=== PATIENT | male | born 1980 | race Caucasian/White ===

== ENCOUNTER 2018-01-10 21:26 | Outpatient (CLI) | payer MEDICAID | END 2018-01-10 21:27 | disposition critical access hospital (66) | LOC: EMS 21:26 | PROVIDERS: ATTEND Surgery | DX: M79.675 Pain in left toe(s) (principal) | CPT/HCPCS: A0425; A0429 ==

== ENCOUNTER 2018-01-10 21:44 | Emergency (ER) | payer MEDICAID ==
[2018-01-10 21:48] VITALS: BP 158/113
[2018-01-10] MEDS ORDERED: LIDOCAINE PATCH 5% TOP STA (21:49)
[2018-01-10] MEDS ORDERED: ACETAMINOPHEN 325 MG TABLET PO STA (21:49)
--- NOTE | 2018-01-10 22:01 | ED Physician Documentation ---
PD HPI LOWER EXT INJURY - Stated complaint Stated Complaint: SORE FOOT - Chief complaint Chief Complaint: Trauma Ext - History obtained from History obtained from: Patient, EMS - History of Present Illness PD HPI LOW EXT INJURY LOCATION: Left, Foot Timing - onset: Other ("forever") Similar symptoms before: No diagnosis Recently seen: Not recently seen - Additional information Additional information: Patient is a 37 year old male who is presenting to the emergency department for left toe pain. Patient reports that the pain has been going on forever and it is from "barometric pressure". Patient appears to be under the influence of methamphetamine or other sympathomimetic. Review of Systems Unable to obtain: AMS PD PAST MEDICAL HISTORY - Past Medical History Past Medical History: No - Past Surgical History Past Surgical History: Yes General: Appendectomy - Present Medications Home Medications: Ambulatory Orders Medication Instructions Recorded Confirmed Ibuprofen [Motrin] 400 mg PO Q6H PRN #20 tablet 09/11/15 Mupirocin Calcium [Bactroban] 1 applic TP BID #1 tub 09/11/15 Lidocaine Patch 5% [Lidoderm Patch] 1 each TOP DAILY #7 patch 01/10/18 - Allergies Allergies/Adverse Reactions: Allergies Allergy/AdvReac Type Severity Reaction Status Date / Time Penicillins Allergy Unknown Verified 01/10/18 21:48 - Social History Does the pt smoke?: Yes Smoking Status: Current every day smoker Does the pt drink ETOH?: No Does the pt have substance abuse?: Yes - Immunizations Immunizations are current?: No PD ED PE NORMAL - Vitals Vital signs reviewed: Yes - HEENT HEENT: Atraumatic - Neck Neck: Supple, no meningeal sign - Respiratory Respiratory: No respiratory distress - Abdomen Abdomen: Non distended - Derm Derm: No rash - Neuro Neuro: No motor deficit, Normal speech Eye Opening: Spontaneous PD ED PE EXPANDED - Cardiac Cardiac: Tachy - Extremities Extremities: Left foot (milder erythema of left foot), Left toe(s) (callus between toes on left foot, no sign of fungal infection or cellulits ) - Psych Psych: Agitated Results - Vitals Vitals: Vital Signs - 24 hr 01/10/18 21:45 Temperature 36.9 C Heart Rate 102 H Respiratory 20 Rate Blood Pressure 158/113 H O2 Saturation 99 Oxygen O2 Source Room air PD MEDICAL DECISION MAKING - ED course Complexity details: reviewed old records, reviewed results, re-evaluated patient , considered differential, d/w patient ED course: patient was seen and examined at bedside. Patient was under the influence of a sympathomimetic, likely methamphetamine. There was no acute trauma or other injury or treatable cause appreciated for patient's foot pain. Patient was treated with lidoderm pathch and tylenol. Patient required no further work up and was stable for discharge with outpatient follow up. Departure - Departure Disposition: 01 Home, Self Care Clinical Impression: Toe pain, left Condition: Good Instructions: Chronic Pain Follow-Up: Melly Adame ARNP [Primary Care Provider] - Prescriptions: Lidocaine Patch 5% [Lidoderm Patch] 1 each TOP DAILY #7 patch Comments: You should alternate between motrin and tylenol as needed for pain. You can also apply the lidoderm patch as needed. You should follow up with your doctor if your pain persists. Discharge Date/Time: 01/10/18 22:33
== END 2018-01-10 22:33 | disposition home or self-care (01) ==
LOC: EDUNIT# → ED 21:44
DX: M79.675 Pain in left toe(s) (principal); F17.200 Nicotine dependence, unspecified, uncomplicated
CPT/HCPCS: 99283; A9270

== ENCOUNTER 2019-01-15 07:20 | Outpatient (CLI) | payer SELFPAY | END 2019-01-15 07:21 | disposition EMS.NT | LOC: EMS 07:20 | PROVIDERS: ATTEND Surgery | DX: T14.90XA Injury, unspecified, initial encounter (principal); Y08.89XA Assault by other specified means, initial encounter; Z59.0 Homelessness ==

== ENCOUNTER 2019-10-13 15:01 | Emergency (ER) | payer SELFPAY ==
[2019-10-13 15:21] VITALS: BP 120/99
--- NOTE | 2019-10-13 15:42 | ED Physician Documentation ---
History of Present Illness - Stated complaint Stated Complaint: RT HAND WOUND/SWELLING - Chief complaint Chief Complaint: Wound - History obtained from History obtained from: Patient - History of Present Illness Timing: How many days ago (3-4) Pain level max: 4 Pain level now: 3 - Additonal information Additional information: 39 year old male, right handed states swelling and redness to the dorsum of the hand. denies any injury. denies IV drug use. no fevers. worse with movement and better with rest. Review of Systems Constitutional: denies: Fever, Chills Respiratory: denies: Cough GI: denies: Vomiting Skin: denies: Rash PD PAST MEDICAL HISTORY - Past Medical History Past Medical History: No - Past Surgical History Past Surgical History: Yes General: Appendectomy - Present Medications Home Medications: Ambulatory Orders Medication Instructions Recorded Confirmed Clindamycin HCl [Clindamycin 300MG 300 mg PO Q6H #40 capsule 10/13/19 CAP] - Allergies Allergies/Adverse Reactions: Allergies Allergy/AdvReac Type Severity Reaction Status Date / Time Penicillins Allergy Unknown Verified 10/13/19 15:21 - Living Situation Living Situation: reports: With family Living Arrangement: reports: At home - Social History Does the pt smoke?: Yes Smoking Status: Current every day smoker Does the pt drink ETOH?: No Does the pt have substance abuse?: Yes - Immunizations Immunizations are current?: No PD ED PE NORMAL - Vitals Vital signs reviewed: Yes - General General: Alert and oriented X 3, No acute distress, Well developed/nourished - HEENT HEENT: Moist mucous membranes - Neck Neck: Supple, no meningeal sign - Derm Derm: Warm and dry - Extremities Extremities: Other (dorsum R hand - small asbcess with diffuse swelling. no palmar tenderness. NVI. no tendon injury. ) - Neuro Neuro: Alert and oriented X 3 - Psych Psych: Normal mood, Normal affect Results - Vitals Vitals: Vital Signs - 24 hr 10/13/19 15:15 Temperature 36.9 C Heart Rate 99 Respiratory 20 Rate Blood Pressure 120/99 H O2 Saturation 98 Oxygen O2 Source Room air Procedures - Abscess I&D (location) R hand dorsum Preparation: Confirmed with ultrasound, Lidocaine 2 % Incision: Incised with scalpel, Purulent drainage, Irrigated Other: Pt tolerated well, Dressing applied, Antibiotic prescribed PD MEDICAL DECISION MAKING - ED course Complexity details: considered differential, d/w patient ED course: Patient with a small abscess to the dorsum of the right hand with surrounding. No lymphangitis. No deep space infection in the hand. No tenderness along the tendons. Incision and drainage performed. Will place on antibiotics for home. Patient counseled regarding signs and symptoms for which I believe and urgent re-evaluation would be necessary. Patient with good understanding of and agreement to plan and is comfortable going home at this time This document was made in part using voice recognition software. While efforts are made to proofread this document, sound alike and grammatical errors may occur. Tetanus is up-to-date Departure - Departure Disposition: 01 Home, Self Care Clinical Impression: Abscess Cellulitis Qualifiers: Site of cellulitis: extremity Site of cellulitis of extremity: upper extremity Laterality: right Qualified Code(s): L03.113 - Cellulitis of right upper limb Condition: Good Instructions: ED Abscess IandD, ED Infec Skin Cellulitis Follow-Up: your,doctor in 2 days for wound check [Other] Prescriptions: Clindamycin HCl [Clindamycin 300MG CAP] 300 mg PO Q6H #40 capsule Comments: Take all antibiotics until gone. Follow-up with your doctor in 2 days for a wound check or return here. Return sooner if you notice increasing redness, swelling or you develop fevers.
[2019-10-13] MEDS: CLINDAMYCIN 150 MG CAPSULE PO STA (15:50)
== END 2019-10-13 15:50 | disposition home or self-care (01) ==
LOC: ED 15:01
DX: L02.511 Cutaneous abscess of right hand (principal); L03.113 Cellulitis of right upper limb; F17.200 Nicotine dependence, unspecified, uncomplicated
CPT/HCPCS: 10060

== ENCOUNTER 2019-11-09 13:59 | Emergency (ER) | payer SELFPAY ==
[2019-11-09 14:09] VITALS: BP 105/83
--- NOTE | 2019-11-09 14:21 | ED Physician Documentation ---
History of Present Illness - Stated complaint Stated Complaint: FACE BUG BITE - Chief complaint Chief Complaint: Wound - History obtained from History obtained from: Patient - History of Present Illness Timing: How many days ago (3) Pain level max: 4 Pain level now: 3 - Additonal information Additional information: 39-year-old male states that he has had swelling to the inside of the left nare for the past 2 to 3 days. States he squeezed it and pus came out. Now has redness and swelling. No fevers. Nothing makes it better or worse. Review of Systems Constitutional: denies: Fever, Chills Cardiac: denies: Chest pain / pressure Respiratory: denies: Cough GI: denies: Nausea, Vomiting, Diarrhea Skin: denies: Rash PD PAST MEDICAL HISTORY - Past Medical History Past Medical History: No - Past Surgical History Past Surgical History: Yes General: Appendectomy - Present Medications Home Medications: Ambulatory Orders Medication Instructions Recorded Confirmed Clindamycin HCl [Clindamycin 300MG 300 mg PO Q6H #40 capsule 10/13/19 CAP] Doxycycline Hyclate 100 mg PO BID #20 capsule 11/09/19 Mupirocin 1 gm TP BID #1 oint...g. 11/09/19 - Allergies Allergies/Adverse Reactions: Allergies Allergy/AdvReac Type Severity Reaction Status Date / Time Penicillins Allergy Unknown Verified 11/09/19 14:03 - Social History Does the pt smoke?: Yes Smoking Status: Current every day smoker Does the pt drink ETOH?: No Does the pt have substance abuse?: Yes - Immunizations Immunizations are current?: No PD ED PE NORMAL - Vitals Vital signs reviewed: Yes - General General: Alert and oriented X 3, No acute distress, Well developed/nourished - HEENT HEENT: PERRL, Moist mucous membranes, Other (Swelling to the inside of the left nare. No facial swelling. Mild tenderness to palpation. No drainage.) - Neck Neck: Supple, no meningeal sign - Cardiac Cardiac: RRR, Strong equal pulses - Respiratory Respiratory: No respiratory distress, Clear bilaterally - Abdomen Abdomen: Soft, Non tender, Non distended - Derm Derm: Warm and dry - Extremities Extremities: No deformity - Neuro Neuro: Alert and oriented X 3 Results - Vitals Vitals: Vital Signs - 24 hr 11/09/19 14:03 Temperature 36.6 C Heart Rate 87 Respiratory 20 Rate Blood Pressure 105/83 H O2 Saturation 100 Oxygen O2 Source Room air PD MEDICAL DECISION MAKING - ED course Complexity details: considered differential, d/w patient ED course: Patient states he did not like the way the clindamycin made him feel for the last abscess. Will place on doxycycline and mupirocin. Patient will follow-up with his doctor for repeat evaluation. The entire area of the erythema is 0.5 x 0.5 cm. Patient counseled regarding signs and symptoms for which I believe and urgent re-evaluation would be necessary. Patient with good understanding of and agreement to plan and is comfortable going home at this time This document was made in part using voice recognition software. While efforts are made to proofread this document, sound alike and grammatical errors may occur. Departure - Departure Disposition: 01 Home, Self Care Clinical Impression: Abscess Condition: Good Instructions: ED Staph Infec Abx Tx Only Follow-Up: your,doctor in1 week for wound check [Other] Prescriptions: Doxycycline Hyclate 100 mg PO BID #20 capsule Mupirocin 1 gm TP BID #1 oint...g. Comments: Take all antibiotics until gone. Return if you worsen. You can also apply the mupirocin topically.
== END 2019-11-09 14:30 | disposition home or self-care (01) ==
LOC: ED 13:59
DX: J34.0 Abscess, furuncle and carbuncle of nose (principal); F17.200 Nicotine dependence, unspecified, uncomplicated
CPT/HCPCS: 99282; 99284

== ENCOUNTER 2020-08-23 11:30 | Emergency (ER) | payer MEDICAID ==
[2020-08-23 11:48] VITALS: BP 136/81
[2020-08-23] MEDS ORDERED: KETOROLAC 15 MG/ML VIAL IM STA (11:54)
[2020-08-23] MEDS ORDERED: MAG HYDROX/AL HYDROX/SIMETH 30 ML UDC PO STA (11:54)
--- NOTE | 2020-08-23 11:55 | ED Physician Documentation ---
History of Present Illness - Stated complaint Stated Complaint: BACK PX - Chief complaint Chief Complaint: Back Pain - History obtained from History obtained from: Patient - Additonal information Additional information: Pt is a poor historian exhibiting flight of ideas, but states he has an upset stomach possibly from drinking "bad wine" but also thinks perhaps the [facility] is contaminated. He has difficulty describing his stomach symptoms other than to say it "just feels weird" but no specific pain. Adamantly denies n/v or fever. He is voiding per normal. No bowel changes. He states he is also having back pain, though again goes on multiple different tangents when I ask him about his pain. He does not have any lower ext weakness, saddle anesthesia, bowel or bladder changes, or fever. Pt denies IVDU though per chart review there is a hx/o drug used noted in the ED here. Pt denies any cough or URI sx, cp, dyspnea, or other new symptoms. Review of Systems Constitutional: reports: Reviewed and negative Eyes: reports: Reviewed and negative Ears: reports: Reviewed and negative Nose: reports: Reviewed and negative Throat: reports: Reviewed and negative Cardiac: reports: Reviewed and negative Respiratory: reports: Reviewed and negative GI: reports: Abdominal Pain. denies: Abdominal Swelling, Nausea, Vomiting, Constipation, Bloody / black stool : reports: Reviewed and negative Skin: reports: Reviewed and negative Musculoskeletal: reports: Back pain. denies: Neck pain, Extremity pain, Joint pain, Extremity swelling, Joint swelling, Pain with weight bearing Neurologic: reports: Reviewed and negative Psychiatric: reports: Delusions. denies: Depressed, Suicidal, Homicidal, Hallucinations, Anxiety, Insomnia Endocrine: reports: Reviewed and negative Immunocompromised: reports: Reviewed and negative PD PAST MEDICAL HISTORY - Past Medical History Past Medical History: Yes - Past Surgical History Past Surgical History: Yes General: Appendectomy - Present Medications Home Medications: Ambulatory Orders Medication Instructions Recorded Confirmed Famotidine [Pepcid] 20 mg PO BID #60 tablet 08/23/20 Ondansetron Odt [Zofran] 4 mg TL Q6H PRN #10 tablet 08/23/20 - Allergies Allergies/Adverse Reactions: Allergies Allergy/AdvReac Type Severity Reaction Status Date / Time Penicillins Allergy Unknown Verified 08/23/20 11:48 - Social History Does the pt smoke?: Yes Smoking Status: Current every day smoker Does the pt drink ETOH?: No Does the pt have substance abuse?: Yes - Immunizations Immunizations are current?: No PD ED PE NORMAL - Vitals Vital signs reviewed: Yes - General General: Alert and oriented X 3, No acute distress, Well developed/nourished - HEENT HEENT: Atraumatic, PERRL, EOMI, Ears normal, Moist mucous membranes, Pharynx benign - Neck Neck: Supple, no meningeal sign, No bony TTP, No adenopathy, No JVD - Cardiac Cardiac: RRR, No murmur, No gallop, No rub, Strong equal pulses - Respiratory Respiratory: No respiratory distress, Clear bilaterally - Abdomen Abdomen: Normal bowel sounds, Soft, Non tender, Non distended, No organomegaly - Back Back: No CVA TTP, No spinal TTP - Derm Derm: Normal color, Warm and dry, No rash - Extremities Extremities: No deformity, No tenderness to palpate, Normal ROM s pain, No edema, No calf tenderness / cord - Neuro Neuro: Alert and oriented X 3 Eye Opening: Spontaneous Motor: Obeys Commands Verbal: Oriented GCS Score: 15 - Psych Psych: Other (Pt is calm and pleasant but does exhibit delusional behavior and flight of ideas. He is not suicidal or homicidal and has expressed no aggressive or self harm thoughts. ) Results - Vitals Vitals: Vital Signs - 24 hr 08/23/20 11:41 Temperature 36.9 C Heart Rate 92 Respiratory 20 Rate Blood Pressure 136/81 H O2 Saturation 100 Oxygen O2 Source Room air PD MEDICAL DECISION MAKING - ED course Complexity details: re-evaluated patient, d/w patient ED course: Pt presented with mild generalized abdominal discomfort and reflux sx as well as vague generalized back pain. His physical exam is reassuring w/o any focal back or abd pain on exam, no guarding or grimacing, normal bowel tones. He had no sx of acute abdomen or acute back injury requiring imaging. He received toradol IM and maalox w/ resolution of his symptoms. He was exhibiting delusional behavior and flight of ideas but no aggressive behavior, no ideas of self harm or hurting others. He declined mental health evaluation today and is not exhibiting behavior that would warrant a mental health hold. I did encourage him to establish care with a mental health provider. Departure - Departure Disposition: 01 Home, Self Care Clinical Impression: Reflux gastritis Condition: Good Instructions: ED Gastritis Prescriptions: Famotidine [Pepcid] 20 mg PO BID #60 tablet Ondansetron Odt [Zofran] 4 mg TL Q6H PRN #10 tablet PRN Reason: Nausea / Vomiting Comments: Didier cole presented today with stomach upset and back pain. You had impro vement with the medication I gave you. Your physical exam is reassuring and your vital signs were stable. If you have new symptoms such as fever, or increased abdominal pain or otherwise worsening symptoms, please return to the ER. Please avoid alcohol and ensure you are drinking from a clean water source. Discharge Date/Time: 08/23/20 12:45
== END 2020-08-23 12:45 | disposition home or self-care (01) ==
LOC: ED 11:30
DX: K29.60 Other gastritis without bleeding (principal); K21.9 Gastro-esophageal reflux disease without esophagitis; F22 Delusional disorders; F17.200 Nicotine dependence, unspecified, uncomplicated
CPT/HCPCS: 96372; 99283; 99284; A9270

== ENCOUNTER 2021-01-27 | Outpatient (CLI) | payer MEDICAID | END 2021-01-27 19:56 | disposition critical access hospital (66) | CPT/HCPCS: A0425; A0429; A0999 ==

== ENCOUNTER 2021-01-27 20:13 | Emergency (ER) | payer MEDICAID ==
[2021-01-27 20:26] VITALS: BP 137/92
--- NOTE | 2021-01-27 21:01 | ED Physician Documentation ---
History of Present Illness - Stated complaint Stated Complaint: AMS - Chief complaint Chief Complaint: General - History obtained from History obtained from: Patient (40-year-old gentleman brought in because reportedly was having some trouble standing up. Breathalyzer prior to arrival was negative. On arrival here on initial evaluation he states he wants water and nothing else. Asked if he had any medical complaints he denied.) Review of Systems Constitutional: denies: Fever, Chills Cardiac: denies: Chest pain / pressure, Palpitations Respiratory: denies: Dyspnea, Cough PD PAST MEDICAL HISTORY - Past Medical History Past Medical History: Yes - Past Surgical History Past Surgical History: Yes General: Appendectomy - Present Medications Home Medications: Ambulatory Orders Medication Instructions Recorded Confirmed Famotidine [Pepcid] 20 mg PO BID #60 tablet 08/23/20 Ondansetron Odt [Zofran] 4 mg TL Q6H PRN #10 tablet 08/23/20 - Allergies Allergies/Adverse Reactions: Allergies Allergy/AdvReac Type Severity Reaction Status Date / Time Penicillins Allergy Unknown Verified 01/27/21 20:19 - Social History Does the pt smoke?: Yes Smoking Status: Current every day smoker Does the pt drink ETOH?: No Does the pt have substance abuse?: Yes - Immunizations Immunizations are current?: No - POLST Patient has POLST: No PD ED PE NORMAL - Vitals Vital signs reviewed: Yes - General General: Alert and oriented X 3, No acute distress - HEENT HEENT: PERRL, EOMI - Neck Neck: Supple, no meningeal sign, No bony TTP - Cardiac Cardiac: RRR, No murmur - Respiratory Respiratory: No respiratory distress, Clear bilaterally - Abdomen Abdomen: Normal bowel sounds, Soft, Non tender - Back Back: No CVA TTP, No spinal TTP - Derm Derm: Normal color, Warm and dry - Extremities Extremities: No edema, No calf tenderness / cord - Neuro Neuro: Alert and oriented X 3, Normal speech Results - Vitals Vitals: Vital Signs - 24 hr 01/27/21 01/27/21 20:19 20:26 Temperature 37.3 C 37.3 C Heart Rate 82 82 Respiratory 16 16 Rate Blood Pressure 137/92 H 137/92 H O2 Saturation 97 97 Oxygen O2 Source Room air PD MEDICAL DECISION MAKING - ED course ED course: He was observed for a while, he did vomit once here, he was reassessed, stated that he was sick because he ate too much pizza. Then stated he wanted water. I offered nausea medicine which she declined. He did not want any testing done. He was ambulating around the department, belligerent but alert and oriented. He repeatedly refused medical evaluation or treatment. Departure - Departure Disposition: 01 Home, Self Care Clinical Impression: N&V (nausea and vomiting) Qualifiers: Vomiting type: projectile vomiting Qualified Code(s): R11.12 - Projectile vomiting Condition: Good Record reviewed to determine appropriate education?: Yes Instructions: ED Nausea Vomiting Comments: Return any time if you decide you would like medical care.
== END 2021-01-27 21:44 | disposition home or self-care (01) ==
LOC: EDUNIT# → ED 20:13
DX: R11.12 Projectile vomiting (principal); R53.1 Weakness; F17.200 Nicotine dependence, unspecified, uncomplicated; Z53.20 Procedure and treatment not carried out because of patient's decision for unspecified reasons
CPT/HCPCS: 80053; 80307; 80320; 80329; 83690; 84443; 85025; 99281; 99283

== ENCOUNTER 2021-10-05 20:52 | Outpatient (CLI) | payer MEDICAID | END 2021-10-05 20:53 | disposition home or self-care (01) | LOC: EMS 20:52 | DX: M25.561 Pain in right knee (principal); V03.10XA Pedestrian on foot injured in collision with car, pick-up truck or van in traffic accident, initial encounter; Y92.414 Local residential or business street as the place of occurrence of the external cause | CPT/HCPCS: A0425; A0429; A0999 ==

== ENCOUNTER 2022-12-18 17:05 | Outpatient (CLI) | payer MEDICAID | END 2022-12-18 17:06 | disposition critical access hospital (66) | LOC: EMS 17:05 | DX: R46.4 Slowness and poor responsiveness (principal); R45.1 Restlessness and agitation; R09.89 Other specified symptoms and signs involving the circulatory and respiratory systems; M79.89 Other specified soft tissue disorders | CPT/HCPCS: A0425; A0427; A0999 ==

== ENCOUNTER 2022-12-18 17:22 | Emergency (ER) | payer MEDICAID ==
[2022-12-18] MEDS ORDERED: EPINEPHrine ABBOJECT 1 MG/10 ML SYRINGE IVP ONE (17:23)
[2022-12-18] MEDS ORDERED: NALOXONE 0.4 MG/ML VIAL IVP STA (18:16)
[2022-12-18 18:30] LABS: BASOPHILS % (AUTO) 0.1 %; HCT - HEMATOCRIT 47.4 % (42.0-52.0); LYMPHOCYTES # (AUTO) 0.6 10^3/uL (1.5-3.5); LYMPHOCYTES % (AUTO) 7.2 %; MEAN CORPUSCULAR HGB CONC 31.6 g/dL (32.0-36.0); MEAN CORPUSCULAR VOLUME 91.5 fL (80.0-94.0); MEAN PLATELET VOLUME 9.3 fL (7.4-11.4); MONOCYTES # (AUTO) 0.4 10^3/uL (0.0-1.0); MONOCYTES % (AUTO) 4.8 %; NEUTROPHILS # (AUTO) 7.3 10^3/uL (1.5-6.6); NEUTROPHILS % (AUTO) 87.7 %; PLT - PLATELET COUNT 321 10^3/uL (130-450); RED BLOOD COUNT 5.18 10^6/uL (4.70-6.10); WHITE BLOOD COUNT 8.3 x10^3/uL (4.8-10.8)
[2022-12-18] MEDS ORDERED: ROCURONIUM 50 MG/5 ML VIAL ONE (18:33)
[2022-12-18] MEDS ORDERED: SUCCINYLCHOLINE 200 MG/10 ML VIAL ONE (18:33)
[2022-12-18 18:45] LABS: ACETAMINOPHEN < 10 ug/mL (10-30); ALBUMIN/GLOBULIN RATIO 1.6 (1.0-2.2); ALKALINE PHOSPHATASE 75 IU/L (42-121); ALT ALANINE AMINOTRANSFERASE 73 IU/L (10-60); AST ASPARTATE AMINOTRANSFERASE 131 IU/L (10-42); BUN - BLOOD UREA NITROGEN 50 mg/dL (6-20); CALCIUM 7.6 mg/dL (8.5-10.3); CARBON DIOXIDE - CO2 24 mmol/L (21-32); CHLORIDE 100 mmol/L (101-111); CREATININE 2.2 mg/dL (0.6-1.2); ETOH - ETHANOL < 5.0 mg/dL; GFR - MDRD 33 (>89); GLUCOSE 104 mg/dL (70-100); LIPASE 66 U/L (22-51); SALICYLATE < 6.0 mg/dL; SODIUM 138 mmol/L (135-145); TOTAL PROTEIN 6.5 g/dL (6.7-8.2)
[2022-12-18 18:47] LABS: POTASSIUM 7.3 mmol/L (3.5-5.0)
[2022-12-18] MEDS ORDERED: CALCIUM GLUC 1,000MG/50ML-NACL 1,000 MG/50 ML BAG IV STA ×2 (18:48→22:53)
[2022-12-18] MEDS ORDERED: MIDAZOLAM 2 MG/2 ML VIAL ONE (18:59)
[2022-12-18] MEDS ORDERED: PROPOFOL 1000 MG/100 ML 1,000 MG/100 ML BOTTLE IV SCH (19:00)
[2022-12-18] MEDS ORDERED: fentaNYL 2,500 MCG in SODIUM CHLORIDE 0.9% 200 ML IV STA (19:02)
[2022-12-18] MEDS ORDERED: ROCURONIUM 50 MG/5 ML VIAL IVP STA ×3 (19:11→23:15)
--- NOTE | 2022-12-18 19:11 | ED Physician Documentation ---
PD HPI ALTERED MENTAL STATUS - Stated complaint Stated Complaint: POSS OD - Chief complaint Chief Complaint: Neuro - History obtained from History obtained from: EMS - Additional information Additional information: Patient is a 42-year-old with unknown past medical history reportedly found unresponsive by the police. He was given 0.5 mg of Narcan from EMS and reportedly responded and was able to hold a conversation after this. He denied to the paramedics that he had taken any drugs or alcohol.RN reported that he was initially able to hold a conversation when he arrived to the emergency departme and stated that he was hungry and wanted to eat.She reports that he was alert and oriented x2. Upon my evaluation, patient is minimally responsive to painful stimuli and will tell me his name but otherwise no other information. Review of Systems Unable to obtain: AMS PD PAST MEDICAL HISTORY - Past Medical History Cardiovascular: None Respiratory: None Endocrine/Autoimmune: None - Past Surgical History Past Surgical History: Yes General: Appendectomy - Present Medications Home Medications: Ambulatory Orders Medication Instructions Recorded Confirmed Famotidine [Pepcid] 20 mg PO BID #60 tablet 08/23/20 Ondansetron Odt [Zofran] 4 mg TL Q6H PRN #10 tablet 08/23/20 Acetaminophen [Acetaminophen Extra 500 mg PO QID PRN #50 tablet 10/06/21 Strength] Naproxen 500 mg PO BID 7 Days #14 tab 10/06/21 methocarbamoL [Robaxin] 500 mg PO TID PRN #20 tablet 10/06/21 - Allergies Allergies/Adverse Reactions: Allergies Allergy/AdvReac Type Severity Reaction Status Date / Time Penicillins Allergy Unknown Verified 12/18/22 17:52 - Social History Does the pt smoke?: Yes Smoking Status: Current every day smoker Does the pt drink ETOH?: No Does the pt have substance abuse?: Yes - Immunizations Immunizations are current?: No - POLST Patient has POLST: No PD ED PE NORMAL - General General: Other (Distress, unkempt, responsive to painful stimuli and is able to state his name) - HEENT HEENT: Atraumatic, Moist mucous membranes, Pharynx benign, Other (Pinpoint pupils) - Neck Neck: Supple, no meningeal sign - Cardiac Cardiac: Other Results - Vitals Vitals: Vital Signs - 24 hr 03/16/23 03/16/23 03/16/23 17:48 19:25 21:03 Temperature 36.6 C Heart Rate 104 H 108 H 108 H Respiratory 21 18 Rate Blood Pressure 114/81 H 122/72 O2 Saturation 97 91 L 12/18/22 12/18/22 12/18/22 22:00 22:25 23:22 Temperature Heart Rate 101 H 101 H 97 Respiratory 20 24 21 Rate Blood Pressure 137/77 H 130/77 117/63 O2 Saturation 93 73 L 78 L Oxygen O2 Source Mechanical ventilator - EKG (time done) 2031 EKG releavant findings:: EKG personally interpreted by author of this note. Relevant findings are: Rate 100, sinus tachycardia, no STEMI, QTc 435 Rate: Rate (enter#) (100) Rhythm: Sinus tachycardia Intervals: No: Prolonged QT Ischemia: No: ST elevation c/w ischemia Compare to prior EKG: Old EKG unavailable - Labs Labs: Laboratory Tests 12/18/22 12/18/22 12/18/22 18:15 18:23 18:23 WBC 8.3 RBC 5.18 Hgb 15.0 Hct 47.4 MCV 91.5 MCH 29.0 MCHC 31.6 L RDW 13.0 Plt Count 321 MPV 9.3 Neut # (Auto) 7.3 H Lymph # (Auto) 0.6 L Benton # (Auto) 0.4 Eos # (Auto) 0.0 Baso # (Auto) 0.0 Absolute Nucleated RBC 0.00 Total Counted Band Neuts % (Manual) Reactive Lymphs % (Man) Abnorm Lymph % (Manual) Metamyelocytes % Nucleated RBC % 0.0 Neutrophils # (Manual) Lymphocytes # (Manual) Monocytes # (Manual) Eosinophils # (Manual) Basophils # (Manual) Differential Comment Platelet Estimate Platelet Morphology RBC Morph Micro Appear PT INR Bld Gas Analysis Time Sample Site ABG pH ABG pCO2 ABG pO2 ABG HCO3 ABG Total CO2 ABG O2 Saturation ABG Base Excess Lc Test Respiration Rate O2 Delivery Device Vent Mode FiO2 Tidal Volume PEEP Sodium 138 Potassium 7.3 H* Chloride 100 L Carbon Dioxide 24 Anion Gap 14.0 H BUN 50 H Creatinine 2.2 H Estimated GFR (MDRD) 33 L Glucose 104 H Lactic Acid Calcium 7.6 L Total Bilirubin 1.0 AST 131 H ALT 73 H Alkaline Phosphatase 75 Ammonia Troponin I High Sens B-Natriuretic Peptide Total Protein 6.5 L Albumin 4.0 Globulin 2.5 Albumin/Globulin Ratio 1.6 Lipase 66 H Urine Color Urine Clarity Urine pH Ur Specific [place] Urine Protein Urine Glucose (UA) Urine Ketones Urine Occult Blood Urine Nitrite Urine Bilirubin Urine Urobilinogen Ur Leukocyte Esterase Urine RBC Urine WBC Ur Squamous Epith Cells Amorphous Sediment Urine Bacteria Urine Casts Urine Sperm Ur Microscopic Review Urine Culture Comments Gastric Fluid pH Gastric Occult Blood Salicylates < 6.0 Urine Opiates Screen Ur Oxycodone Screen Urine Methadone Screen Ur Propoxyphene Screen Acetaminophen < 10 L Ur Barbiturates Screen Ur Tricyclics Screen Ur Phencyclidine Scrn Ur Amphetamine Screen U Methamphetamines Scrn U Benzodiazepines Scrn Urine Cocaine Screen U Cannabinoids Screen Ethyl Alcohol < 5.0 Blood Type Blood Type Recheck B NEGATIVE Antibody Screen 12/18/22 12/18/22 12/18/22 18:23 18:23 19:26 WBC RBC Hgb Hct MCV MCH MCHC RDW Plt Count MPV Neut # (Auto) Lymph # (Auto) Benton # (Auto) Eos # (Auto) Baso # (Auto) Absolute Nucleated RBC Total Counted Band Neuts % (Manual) Reactive Lymphs % (Man) Abnorm Lymph % (Manual) Metamyelocytes % Nucleated RBC % Neutrophils # (Manual) Lymphocytes # (Manual) Monocytes # (Manual) Eosinophils # (Manual) Basophils # (Manual) Differential Comment Platelet Estimate Platelet Morphology RBC Morph Micro Appear PT 11.6 INR 1.0 Bld Gas Analysis Time Sample Site ABG pH ABG pCO2 ABG pO2 ABG HCO3 ABG Total CO2 ABG O2 Saturation ABG Base Excess Lc Test Respiration Rate O2 Delivery Device Vent Mode FiO2 Tidal Volume PEEP Sodium Potassium Chloride Carbon Dioxide Anion Gap BUN Creatinine Estimated GFR (MDRD) Glucose Lactic Acid Calcium Total Bilirubin AST ALT Alkaline Phosphatase Ammonia Troponin I High Sens 393.3 H* B-Natriuretic Peptide 252 H Total Protein Albumin Globulin Albumin/Globulin Ratio Lipase Urine Color Urine Clarity Urine pH Ur Specific [place] Urine Protein Urine Glucose (UA) Urine Ketones Urine Occult Blood Urine Nitrite Urine Bilirubin Urine Urobilinogen Ur Leukocyte Esterase Urine RBC Urine WBC Ur Squamous Epith Cells Amorphous Sediment Urine Bacteria Urine Casts Urine Sperm Ur Microscopic Review Urine Culture Comments Gastric Fluid pH Gastric Occult Blood Salicylates Urine Opiates Screen Ur Oxycodone Screen Urine Methadone Screen Ur Propoxyphene Screen Acetaminophen Ur Barbiturates Screen Ur Tricyclics Screen Ur Phencyclidine Scrn Ur Amphetamine Screen U Methamphetamines Scrn U Benzodiazepines Scrn Urine Cocaine Screen U Cannabinoids Screen Ethyl Alcohol Blood Type Blood Type Recheck Antibody Screen 12/18/22 12/18/22 12/18/22 19:26 19:35 20:33 WBC RBC Hgb Hct MCV MCH MCHC RDW Plt Count MPV Neut # (Auto) Lymph # (Auto) [place] # (Auto) Eos # (Auto) Baso # (Auto) Absolute Nucleated RBC Total Counted Band Neuts % (Manual) Reactive Lymphs % (Man) Abnorm Lymph % (Manual) Metamyelocytes % Nucleated RBC % Neutrophils # (Manual) Lymphocytes # (Manual) Monocytes # (Manual) Eosinophils # (Manual) Basophils # (Manual) Differential Comment Platelet Estimate Platelet Morphology RBC Morph Micro Appear PT INR Bld Gas Analysis Time 1954 Sample Site RIGHT RADIAL ABG pH 7.05 L* ABG pCO2 73 H* ABG pO2 69 L ABG HCO3 20.3 L ABG Total CO2 23.0 ABG O2 Saturation 83 L* ABG Base Excess -10.0 L Lc Test POSITIVE Respiration Rate 18 O2 Delivery Device VENTILATOR Vent Mode ASSIST/CONTROL FiO2 100.00 Tidal Volume 500 PEEP 5 Sodium Potassium 5.4 H Chloride Carbon Dioxide Anion Gap BUN Creatinine Estimated GFR (MDRD) Glucose Lactic Acid Calcium Total Bilirubin AST ALT Alkaline Phosphatase Ammonia Troponin I High Sens B-Natriuretic Peptide Total Protein Albumin Globulin Albumin/Globulin Ratio Lipase Urine Color YELLOW Urine Clarity HAZY Urine pH 6.0 Ur Specific [place] >=1.030 H Urine Protein 30 H Urine Glucose (UA) NEGATIVE Urine Ketones NEGATIVE Urine Occult Blood LARGE H Urine Nitrite NEGATIVE Urine Bilirubin NEGATIVE Urine Urobilinogen 0.2 (NORMAL) Ur Leukocyte Esterase NEGATIVE Urine RBC 11-25 H Urine WBC 4-5 Ur Squamous Epith Cells NONE SEEN Amorphous Sediment Few Urine Bacteria Rare Urine Casts 3-5 Hyaline Casts Urine Sperm PRESENT Ur Microscopic Review INDICATED Urine Culture Comments NOT INDICATED Gastric Fluid pH Gastric Occult Blood Salicylates Urine Opiates Screen NEGATIVE Ur Oxycodone Screen NEGATIVE Urine Methadone Screen NEGATIVE Ur Propoxyphene Screen NEGATIVE Acetaminophen Ur Barbiturates Screen NEGATIVE Ur Tricyclics Screen NEGATIVE Ur Phencyclidine Scrn NEGATIVE Ur Amphetamine Screen POSITIVE H U Methamphetamines Scrn POSITIVE H U Benzodiazepines Scrn NEGATIVE Urine Cocaine Screen NEGATIVE U Cannabinoids Screen POSITIVE H Ethyl Alcohol Blood Type Blood Type Recheck Antibody Screen 12/18/22 12/18/22 12/18/22 20:50 22:15 22:15 WBC RBC Hgb Hct MCV MCH MCHC RDW Plt Count MPV Neut # (Auto) Lymph # (Auto) [place] # (Auto) Eos # (Auto) Baso # (Auto) Absolute Nucleated RBC Total Counted Band Neuts % (Manual) Reactive Lymphs % (Man) Abnorm Lymph % (Manual) Metamyelocytes % Nucleated RBC % Neutrophils # (Manual) Lymphocytes # (Manual) Monocytes # (Manual) Eosinophils # (Manual) Basophils # (Manual) Differential Comment Platelet Estimate Platelet Morphology RBC Morph Micro Appear PT INR Bld Gas Analysis Time Sample Site ABG pH ABG pCO2 ABG pO2 ABG HCO3 ABG Total CO2 ABG O2 Saturation ABG Base Excess Lc Test Respiration Rate O2 Delivery Device Vent Mode FiO2 Tidal Volume PEEP Sodium Potassium Chloride Carbon Dioxide Anion Gap BUN Creatinine Estimated GFR (MDRD) Glucose Lactic Acid 1.5 Calcium Total Bilirubin AST ALT Alkaline Phosphatase Ammonia Troponin I High Sens B-Natriuretic Peptide Total Protein Albumin Globulin Albumin/Globulin Ratio Lipase Urine Color Urine Clarity Urine pH Ur Specific [place] Urine Protein Urine Glucose (UA) Urine Ketones Urine Occult Blood Urine Nitrite Urine Bilirubin Urine Urobilinogen Ur Leukocyte Esterase Urine RBC Urine WBC Ur Squamous Epith Cells Amorphous Sediment Urine Bacteria Urine Casts Urine Sperm Ur Microscopic Review Urine Culture Comments Gastric Fluid pH 5.0 Gastric Occult Blood POSITIVE Salicylates Urine Opiates Screen Ur Oxycodone Screen Urine Methadone Screen Ur Propoxyphene Screen Acetaminophen Ur Barbiturates Screen Ur Tricyclics Screen Ur Phencyclidine Scrn Ur Amphetamine Screen U Methamphetamines Scrn U Benzodiazepines Scrn Urine Cocaine Screen U Cannabinoids Screen Ethyl Alcohol Blood Type B NEGATIVE Blood Type Recheck Antibody Screen NEGATIVE 12/18/22 12/18/22 12/18/22 22:15 22:15 22:15 WBC 1.3 L* RBC 4.93 Hgb 14.5 Hct 45.9 MCV 93.1 MCH 29.4 MCHC 31.6 L RDW 13.1 Plt Count 288 MPV 9.7 Neut # (Auto) Not Reportable Lymph # (Auto) Not Reportable [place] # (Auto) Not Reportable Eos # (Auto) Not Reportable Baso # (Auto) Not Reportable Absolute Nucleated RBC Not Reportable Total Counted 100 Band Neuts % (Manual) 15 H Reactive Lymphs % (Man) 19 Abnorm Lymph % (Manual) 0 Metamyelocytes % 3 H Nucleated RBC % Not Reportable Neutrophils # (Manual) 0.7 L Lymphocytes # (Manual) 0.5 L Monocytes # (Manual) 0.0 Eosinophils # (Manual) 0.0 Basophils # (Manual) 0.0 Differential Comment MANUAL DIFFERENTIAL Platelet Estimate NORMAL (130-450,000) Platelet Morphology NORMAL APPEARANCE RBC Morph Micro Appear NORMAL APPEARANCE PT INR Bld Gas Analysis Time Sample Site ABG pH ABG pCO2 ABG pO2 ABG HCO3 ABG Total CO2 ABG O2 Saturation ABG Base Excess Lc Test Respiration Rate O2 Delivery Device Vent Mode FiO2 Tidal Volume PEEP Sodium Potassium Chloride Carbon Dioxide Anion Gap BUN Creatinine Estimated GFR (MDRD) Glucose Lactic Acid Calcium Total Bilirubin AST ALT Alkaline Phosphatase Ammonia 42.3 H Troponin I High Sens 597.9 H* B-Natriuretic Peptide Total Protein Albumin Globulin Albumin/Globulin Ratio Lipase Urine Color Urine Clarity Urine pH Ur Specific [place] Urine Protein Urine Glucose (UA) Urine Ketones Urine Occult Blood Urine Nitrite Urine Bilirubin Urine Urobilinogen Ur Leukocyte Esterase Urine RBC Urine WBC Ur Squamous Epith Cells Amorphous Sediment Urine Bacteria Urine Casts Urine Sperm Ur Microscopic Review Urine Culture Comments Gastric Fluid pH Gastric Occult Blood Salicylates Urine Opiates Screen Ur Oxycodone Screen Urine Methadone Screen Ur Propoxyphene Screen Acetaminophen Ur Barbiturates Screen Ur Tricyclics Screen Ur Phencyclidine Scrn Ur Amphetamine Screen U Methamphetamines Scrn U Benzodiazepines Scrn Urine Cocaine Screen U Cannabinoids Screen Ethyl Alcohol Blood Type Blood Type Recheck Antibody Screen 12/18/22 22:15 WBC RBC Hgb Hct MCV MCH MCHC RDW Plt Count MPV Neut # (Auto) Lymph # (Auto) [place] # (Auto) Eos # (Auto) Baso # (Auto) Absolute Nucleated RBC Total Counted Band Neuts % (Manual) Reactive Lymphs % (Man) Abnorm Lymph % (Manual) Metamyelocytes % Nucleated RBC % Neutrophils # (Manual) Lymphocytes # (Manual) Monocytes # (Manual) Eosinophils # (Manual) Basophils # (Manual) Differential Comment Platelet Estimate Platelet Morphology RBC Morph Micro Appear PT INR Bld Gas Analysis Time Sample Site ABG pH ABG pCO2 ABG pO2 ABG HCO3 ABG Total CO2 ABG O2 Saturation ABG Base Excess Lc Test Respiration Rate O2 Delivery Device Vent Mode FiO2 Tidal Volume PEEP Sodium 139 Potassium 7.0 H* Chloride 109 Carbon Dioxide 24 Anion Gap 6.0 BUN 46 H Creatinine 1.9 H Estimated GFR (MDRD) 39 L Glucose 65 L Lactic Acid Calcium 5.7 L* Total Bilirubin 0.9 AST 151 H ALT 72 H Alkaline Phosphatase 58 Ammonia Troponin I High Sens B-Natriuretic Peptide Total Protein 4.8 L Albumin 2.8 L Globulin 2.0 L Albumin/Globulin Ratio 1.4 Lipase Urine Color Urine Clarity Urine pH Ur Specific [place] Urine Protein Urine Glucose (UA) Urine Ketones Urine Occult Blood Urine Nitrite Urine Bilirubin Urine Urobilinogen Ur Leukocyte Esterase Urine RBC Urine WBC Ur Squamous Epith Cells Amorphous Sediment Urine Bacteria Urine Casts Urine Sperm Ur Microscopic Review Urine Culture Comments Gastric Fluid pH Gastric Occult Blood Salicylates Urine Opiates Screen Ur Oxycodone Screen Urine Methadone Screen Ur Propoxyphene Screen Acetaminophen Ur Barbiturates Screen Ur Tricyclics Screen Ur Phencyclidine Scrn Ur Amphetamine Screen U Methamphetamines Scrn U Benzodiazepines Scrn Urine Cocaine Screen U Cannabinoids Screen Ethyl Alcohol Blood Type Blood Type Recheck Antibody Screen Procedures - Intubation - Major Provider: Emergency physician Blade: Glidescope Tube: Size-enter number (7.5), Cuffed Route: Oral Confirmation: Direct visualization, Bilateral breath sounds, No abdominal breath sound, End tidal CO2, Pulse ox, Chest xray Complications: Aspiration (Patient had aspirated prior to intubation; Difficult to oxygenate, Rechecked ET tube with glide scope and still appears to be through the vocal cords.) - Central Line - Major Central Line Preparation: Unable to obtain consent Central line location: Right Femoral Central line type: Triple lumen Central line aftercare: Chlorhexidine disc placed, Secured, No complications, Pt tolerated well PD Medical Decision Making - ED course Complexity details: reviewed results ED course: A responsive here only opening his eyes to painful stimuli and able to state his name but otherwise quite drowsy. Patient presented to the emergency department with altered mental status, unclear history. Reportedly he was responsive to Narcan in the field.Repeated dose of Narcan was ordered and afterwards patient woke up and was shouting "I am dying I am dying".RN and tech were at the bedside to reassure the patient. They then noted that he became cyanotic And apneic. On pulse check he did not have a femoral or carotid pulse and compressions were started.Patient received several minutes of chest compressions and 1 dose of epinephrine.He then had ROSC and was intubated without any medications. Had a large amount of dark brown emesis. He was difficult to oxygenate and was fighting with the ventilator. I did confirm ET tube placement was through the vocal cords again With direct visualization. His EKG demonstrates sinus tachycardia without signs of acute ischemia. His labs are significant Elevated creatinine. I do not have access to any prior labs through our system or through [facility].His initial potassium was also elevated but a repeat is better at 5.4. This is without receiving any medications.Troponin from labs obtained prior to his arrest is also elevated at 393. Although concerned for NSTEMI, I will not anticoagulate this patient as he also has signs of GI bleed. Post intubation chest xray was reviewed by me - bilateral infiltrates, ETT in adequate position, no pneumthorax. CT head with motion artifact but no obvious ICH. Central line placed. Pt was difficult to oxygenate, seemed asynchronous with vent. ABG reviewed with respiratory acidosis. Pt was given dose of rocuronium and had improvement in his oxygenation. He continued to have coffee ground output from NG and also now having blood from ET tube. CT C/A/P with contrast ordered. I feel risk of contrast in regards to pt's renal function is outweighed by the benefit as further information is needed regarding possible etiology of pt's illness and bleeding. Ct C spine also ordered as history was very unclear. Repeat labs also ordered once central line placed. Pt signed out to overnight physician. He remains boarding awaiting transfer. Formal CT reads and repeat labs also pending. - Critical Care Time(min): 35 Time Includes: Direct patient care, Reassess patient, Document care Procedures excluded from critical care time: Central IV, EKG Departure - Departure Disposition: 02 Transfer Acute Care Hosp Clinical Impression: Cardiac arrest, NSTEMI (non-ST elevated myocardial infarction), Upper GI bleed, Aspiration into airway Condition: Critical
[2022-12-18 19:39] LABS: PT - PROTHROMBIN TIME 11.6 secs (9.9-12.6)
[2022-12-18] MEDS ORDERED: MIDAZOLAM 2 MG/2 ML VIAL IVP STA (19:51)
[2022-12-18 19:58] LABS: ALLEN TEST POSITIVE
[2022-12-18 19:59] LABS: ABG MODE OF VENTILATION ASSIST/CONTROL; ABG RESPIRATORY RATE 18 b/min
[2022-12-18 20:00] LABS: ABG HCO3 20.3 mmol/L (22.0-26.0); ABG PO2 69 mmHg (80-100)
[2022-12-18 20:03] LABS: ABG OXYGEN SATURATION 83 % (94-98); ABG PCO2 73 mmHg (34-45); ABG PH 7.05 (7.35-7.45)
--- NOTE | 2022-12-18 20:10 | XRAY Report ---
PROCEDURE: Chest 1 View X-Ray INDICATIONS: AMS/tube TECHNIQUE: One view of the chest was acquired. COMPARISON: None. FINDINGS: Surgical changes and devices: There is an endotracheal tube with the tip approximately 4.3 cm from t he david. A nasogastric tube extends into the stomach. Lungs and pleura: There are diffuse bilateral patchy airspace opacities with areas of confluence in the upper lung zones. No definite pleural effusions or pneumothorax, with evaluation limited by supin e technique. Mediastinum: Mediastinal contours appear normal. Heart size is normal. Bones and chest wall: No suspicious bony lesions. Overlying soft tissues appear unremarkable. IMPRESSION: 1. Bilateral diffuse patchy airspace opacities with areas of confluence in the upper lung zones. Find ings are nonspecific and the differential includes consolidation, hemorrhage, or edema. 2. Endotracheal and nasogastric tubes appear in appropriate position. Reviewed by: Harsha Jolly MD on 12/18/2022 8:09 PM PDT Approved by: Harsha Jolly MD on 12/18/2022 8:09 PM PDT Station ID: [id number]
--- NOTE | 2022-12-18 20:50 | CT Report ---
PROCEDURE: HEAD WO INDICATIONS: AMS TECHNIQUE: Noncontrast 4.5 mm thick angled axial sections acquired from the foramen magnum to the vertex. For r adiation dose reduction, the following was used: automated exposure control, adjustment of mA and/or kV according to patient size. COMPARISON: CT head 10/05/2021. FINDINGS: Image quality: There is extensive motion artifact limiting evaluation. CSF spaces: Basal cisterns are patent. No extra-axial fluid collections. Ventricles are normal in size and shape. Brain: No definite intracranial hemorrhage, mass, or mass effect. Villagomez-white matter interface appea rs grossly preserved. Skull and face: Calvarium and visualized facial bones demonstrate no acute fractures. There is a sma ll chronic mildly depressed lamina papyracea fracture of the right medial orbital wall redemonstrated . Sinuses: There is moderate mucosal thickening within the ethmoid sinuses and mild because of thickeni ng in the maxillary and sphenoid sinuses. There are scattered bilateral air fluid levels within the p aranasal sinuses suggestive of acute sinusitis. Endotracheal tube is partially visualized as well as a right nasogastric tube. Mastoid air cells are clear. IMPRESSION: 1. Markedly limited study demonstrates no definite acute intracranial abnormality. 2. Sinus mucosal disease with bilateral air-fluid levels in the paranasal sinuses suggestive of acute sinusitis. Reviewed by: Harsha Jolly MD on 12/18/2022 8:49 PM PDT Approved by: Harsha Jolly MD on 12/18/2022 8:49 PM PDT Station ID: [id number]
[2022-12-18 20:58] LABS: GASTROCCULT POSITIVE (Negative)
[2022-12-18 20:58] LABS: MUDS CUTOFF CONCENTRATIONS CUTOFF CONC BELOW:
[2022-12-18] MEDS ORDERED: iohexoL-300 100 ML VIAL ONE (21:04)
[2022-12-18 21:07] LABS: BILIRUBIN,URINE NEGATIVE (NEGATIVE); GLUCOSE, URINE (UA) NEGATIVE (NEGATIVE); KETONES,URINE (UA) NEGATIVE (NEGATIVE); LEUKOCYTE ESTERASE, URINE NEGATIVE (NEGATIVE); NITRITE,URINE NEGATIVE (NEGATIVE); OCCULT BLOOD,URINE LARGE (NEGATIVE); PROTEIN,URINE 30 mg/dL (NEGATIVE); UROBILINOGEN,URINE 0.2 (NORMAL) E.U./dL (NORMAL)
[2022-12-18 21:10] LABS: CLARITY,URINE HAZY (CLEAR)
[2022-12-18 21:20] LABS: BACTERIA,URINE Rare /HPF (None Seen); SQUAMOUS EPITHELIAL CELL,UR NONE SEEN (<= Few)
[2022-12-18 21:21] LABS: AMORPHOUS SEDIMENT,UR Few /LPF; CASTS, URINE 3-5 Hyaline Casts /LPF; SPERM,URINE PRESENT; THC CANNABINOID SCREEN, URINE POSITIVE (NEGATIVE)
[2022-12-18 21:22] LABS: AMPHETAMINE SCREEN,URINE POSITIVE (NEGATIVE); BARBITURATE SCREEN,UR NEGATIVE (NEGATIVE); BENZODIAZEPINES SCREEN, URINE NEGATIVE (NEGATIVE); COCAINE SCREEN URINE NEGATIVE (NEGATIVE); METHADONE SCREEN, URINE NEGATIVE (NEGATIVE); METHAMPHETAMINES SCREEN, URINE POSITIVE (NEGATIVE); OPIATE SCREEN, URINE NEGATIVE (NEGATIVE); OXYCODONE SCREEN, URINE NEGATIVE (NEGATIVE); PROPOXYPHENE SCREEN, URINE NEGATIVE (NEGATIVE); TRICYCLIC ANTIDEPRESSANT,URINE NEGATIVE (NEGATIVE)
[2022-12-18] MEDS ORDERED: SODIUM CHLORIDE 0.9% 1,000 ML IV STA (22:13)
[2022-12-18] MEDS ORDERED: PANTOPRAZOLE 40 MG VIAL IVP STA (22:13)
[2022-12-18] MEDS ORDERED: PIPERACILLIN/TAZOBACTAM 3.375 GM in SODIUM CHLORIDE 0.9% MINIBAG 100 ML IV STA (22:18)
[2022-12-18] MEDS ORDERED: DEXMEDETOMIDINE 400 MCG/100 ML 100 ML IV PRN (22:20)
[2022-12-18] MEDS ORDERED: VANCOMYCIN INJ 1 GM in SODIUM CHLORIDE 0.9% 250 ML IV STA (22:21)
[2022-12-18 22:28] LABS: HCT - HEMATOCRIT 45.9 % (42.0-52.0); HGB - HEMOGLOBIN 14.5 g/dL (14.0-18.0); LYMPHOCYTES % (AUTO) 20.3 %; MEAN CORPUSCULAR HEMOGLOBIN 29.4 pg (27.0-31.0); MEAN CORPUSCULAR HGB CONC 31.6 g/dL (32.0-36.0); MEAN CORPUSCULAR VOLUME 93.1 fL (80.0-94.0); MEAN PLATELET VOLUME 9.7 fL (7.4-11.4); MONOCYTES % (AUTO) 3.1 %; NEUTROPHILS % (AUTO) 76.6 %; PLT - PLATELET COUNT 288 10^3/uL (130-450); RED BLOOD COUNT 4.93 10^6/uL (4.70-6.10); RED CELL DISTRIBUTION WIDTH 13.1 % (12.0-15.0)
--- NOTE | 2022-12-18 22:29 | CT Report ---
PROCEDURE: CERVICAL SPINE WO INDICATIONS: unknown history TECHNIQUE: Noncontrast 3 mm thick sections acquired from the skull base to the T4 level. Sagittal and coronal r eformats were then constructed. For radiation dose reduction, the following was used: automated exp osure control, adjustment of mA and/or kV according to patient size. COMPARISON: None. FINDINGS: Image quality: Study degraded by patient motion artifact and patient positioning. Bones: No acute fractures or dislocations. Visualized superior ribs are intact. Craniocervical junc tion is intact. C1-C2 relationship is preserved. No superior rib fractures noted. No acute compressio n fractures of the cervical spine. Mild straightening of cervical lordosis likely related to position ing and/or concurrent muscle spasms. Facets appear to be well aligned without asymmetric widening. Mu ltilevel cervical spondylosis. Soft tissues: Prevertebral soft tissues are normal in thickness. No paravertebral hematomas. No ap ical pneumothoraces. Extensive left greater than right biapical groundglass opacities and irregular patchy consolidations. Patient is intubated. Nasogastric tube is noted. IMPRESSION: 1. CT cervical spine without acute fracture or traumatic malalignment. 2. Extensive bilateral upper lobe airspace disease more severe on the left. Findings are better evalu ated on dedicated CT of the chest. Please see separate report for details. Reviewed by: Phi Reeder MD on 12/18/2022 9:28 PM LISETH Approved by: Phi Reeder MD on 12/18/2022 9:28 PM LISETH Station ID: [id number]
[2022-12-18 22:31] LABS: ABNORMAL LYMPHS % (MANUAL) 0 %; WHITE BLOOD COUNT 1.3 x10^3/uL (4.8-10.8)
[2022-12-18] MEDS ORDERED: VANCOMYCIN 1 GM VIAL ONE (22:33)
[2022-12-18 22:47] LABS: ALBUMIN 2.8 g/dL (3.2-5.5); ALBUMIN/GLOBULIN RATIO 1.4 (1.0-2.2); BILIRUBIN,TOTAL 0.9 mg/dL (0.2-1.0); CREATININE 1.9 mg/dL (0.6-1.2); TOTAL PROTEIN 4.8 g/dL (6.7-8.2)
--- NOTE | 2022-12-18 22:47 | CT Report ---
PROCEDURE: CHEST W INDICATIONS: pulmonary edema/hemorrhage CONTRAST:Omni 300 TECHNIQUE: After the administration of intravenous contrast, 1 mm axial images were acquired from the pulmonary apices through the posterior costophrenic angles. Axial 5 mm soft tissue kernel reconstructions were performed as well as 8 mm axial MIP and coronal and sagittal 5 mm reformations. For radiation dose reduction, the following was used: automated exposure control, adjustment of mA and/or kV according to patient size. COMPARISON: Chest x-ray 12/18/2022. FINDINGS: Image quality: Excellent. Lower Neck: No lymphadenopathy by size criteria. Thyroid: Visualized thyroid demonstrates no discrete nodules. Axillae: No lymphadenopathy by size criteria. Chest Wall: Unremarkable. Bones: Visualized osseous structures demonstrate no suspicious lesions. Lungs and Airways: There are bilateral patchy areas of consolidation involving all lobes with associ ated areas of groundglass opacities and septal thickening. There are areas of confluent consolidation involving the majority of the left upper lobe and posterior segment of the left lower lobe with asso ciated air bronchograms. Milder confluent consolidation demonstrated within the inferior segment of t he right upper lobe. The constellation of findings likely represent pneumonia and are suggestive of b acterial lobar pneumonia. There is an endotracheal tube with the tip approximately 4 cm from the bennett na. The trachea and central airways appear patent. Pleura: No pneumothorax or pleural effusions. Heart: Heart size is normal. No pericardial effusion. Thoracic Vessels: The aorta and pulmonary arteries are normal in size. Mediastinum and Renae: No lymphadenopathy by size criteria. Esophagus: No wall thickening. No hiatal hernia. Abdomen: Visualized upper abdomen demonstrates a nasogastric tube extending into the stomach. IMPRESSION: 1. Bilateral patchy areas of consolidation with confluent lobar consolidation in the left upper and l ower lobes associated with air bronchograms. The constellation of findings most likely represent pneu monia and are suggestive of bacterial lobar pneumonia. 2. Associated patchy areas of ground glass opacities with septal thickening are nonspecific but are a lso likely related to bacterial pneumonia. The differential includes areas of pulmonary hemorrhage. Reviewed by: Harsha Phillips MD on 12/18/2022 10:45 PM PDT Approved by: Harsha Phillips MD on 12/18/2022 10:45 PM PDT Station ID: [id number]
[2022-12-18 22:51] LABS: CALCIUM 5.7 mg/dL (8.5-10.3)
--- NOTE | 2022-12-18 22:52 | CT Report ---
PROCEDURE: ABDOMEN/PELVIS W INDICATIONS: cardiac arrest CONTRAST: Omni 300 TECHNIQUE: After the administration of intravenous contrast, 5 mm thick sections acquired from the diaphragms to the symphysis. 5 mm thick coronal and sagittal reformats were acquired. For radiation dose reducti on, the following was used: automated exposure control, adjustment of mA and/or kV according to michael ent size. COMPARISON: Concurrent CT of the chest. FINDINGS: Image quality: There is motion artifact and beam hardening artifact limiting evaluation. Lung bases:There are patchy areas of consolidation in the visualized lung bases bilaterally with con fluent consolidation posteriorly in the left lower lobe associated with air bronchograms. Multiple sc attered bilateral areas of groundglass opacity with mild septal thickening also demonstrated. Heart: Heart is normal in size. ABDOMEN: Liver: No mass lesion. Gallbladder: Within normal limits without calcified gallstones. Biliary ducts: No biliary ductal dilatation. Pancreas: Unremarkable. Spleen: Normal in size. Adrenal Glands: No adrenal nodules. Kidneys and Ureters: No hydronephrosis. There is a small peripheral wedge-shaped hypodensity posteri zuri in the left kidney. Stomach and Bowel: Stomach, small bowel loops, and colon are normal in caliber and wall thickness. S cattered air-fluid levels are demonstrated within the small large bowel suggestive of a gastroenterit is or ileus. Peritoneum: No abnormal intraperitoneal fluid. No free air. Ventral Wall: No hernia. Abdominal Nodes: No retroperitoneal or mesenteric adenopathy by size criteria. Vessels: Aorta and inferior vena cava are normal in size. PELVIS: Pelvic Organs: Unremarkable. Bladder:There is a Valdes catheter within a partially distended urinary bladder. Pelvic Nodes: No enlarged lymph nodes. Miscellaneous: No inguinal hernias. Bones: Visualized osseous structures demonstrate no suspicious lesions. IMPRESSION: 1. Bibasilar patchy areas of consolidation with confluent consolidation in the left lower lobe associ ated with air bronchograms. The findings likely represent lobar pneumonia. 2. Scattered areas of ground glass opacity with septal thickening also likely represents sequelae of bacterial pneumonia but the differential is broad and includes pulmonary hemorrhage. 3. Scattered air-fluid levels within small and large bowel loops are nonspecific but suggestive of a gastroenteritis or ileus. No definite bowel obstruction. 4. Peripheral small region of wedge-shaped hypodensity in the left kidney is nonspecific and the diff erential includes a laceration, small cortical infarct or pyelonephritis. Reviewed by: Harsha Jolly MD on 12/18/2022 10:50 PM PDT Approved by: Harsha Jolly MD on 12/18/2022 10:50 PM PDT Station ID: [id number]
[2022-12-18] MEDS ORDERED: INSULIN REGULAR HUMAN 100 UNIT/1 ML 10 ML MDV SUBQ STA (22:54)
[2022-12-18] MEDS ORDERED: DEXTROSE 50% ABBOJECT 25 GM/50 ML SYRINGE IVP STA (22:55)
[2022-12-18 23:15] LABS: BAND NEUTROPHILS % (MANUAL) 15 %; LYMPHOCYTES # (MANUAL) 0.5 10^3/uL (1.5-3.5); LYMPHOCYTES % (MANUAL) 19 %; METAMYELOCYTES % (MANUAL) 3 %; NEUTROPHILS # (MANUAL) 0.7 10^3/uL (1.5-6.6); REACTIVE LYMPHS % (MANUAL) 19 %
[2022-12-18 23:16] LABS: DIFFERENTIAL COMMENT MANUAL DIFFERENTIAL; PLATELET ESTIMATE, MANUAL NORMAL (130-450,000) (NORMAL); PLATELET MORPHOLOGY NORMAL APPEARANCE (NORMAL); RBC MORPHOLOGY (MULTIPLE) NORMAL APPEARANCE (NORMAL)
--- NOTE | 2022-12-18 23:23 | ED Physician Documentation ---
ED Addendum - Addendum Addendum: Assumed care of patient at beginning of shift. Please see previous doctors documentation for further detail. In short patient is 42-year-old male presenting to the emergency department with concern for acute opiate overdose. Subsequently had episode of significant agitation, nausea vomiting, hypoxic respiratory failure and cardiac arrest. ROSC was achieved after 2 rounds CPR 1 dose of epinephrine. Imaging demonstrates severe opacification of the lungs bilaterally, left greater than right. Patient was started on omeprazole, broad-spectrum antibiotics, propofol, fentanyl and Precedex for sedation. On my initial evaluation of the patient he was found to be persistently hypoxic. He had been responding well to paralyzation and he was given a dose of rocuronium. He was noted to have adequate urine output. His oxygen saturations improved with rocuronium however repeat blood gas demonstrated a worsening respiratory acidosis. I increased his ventilatory rate from 18-16 to increase minute ventilation. Subsequent gas demonstrated a modest improvement. I did obtain a repeat electrolyte panel which demonstrated persistent hyperkalemia. There was some improvement in his renal function. I also obtained a CK which demonstrated rhabdomyolysis with CK greater than 9000. He was given insulin, calcium and dextrose for management of his hyperkalemia and IV hydration to help manage his rhabdomyolysis. The patient continued to have persistent low or trending low blood sugars and received multiple ampules of dextrose. On repeat evaluation at approximately 02 100 his hyperkalemia had resolved. His renal function remained stable at creatinine 1.9. I did obtain a venous blood gas at that time which was essentially unchanged. At 05 45, patient self extubated. Had sonorous respirations and oxygen saturations in the 70s. [facility] called. Patient poorly responsive to BVM ventilations. Patient given 50 mg of rocuronium. Failed to improve oxygen saturations with [id number] ventilation. Was successfully intubated by myself, first attempt with clear visualization of cords, confirmation of tube placement with end-tidal CO2 testing, auscultation. 7.5 tube, 34 cm at the teeth. Chest x-ray demonstrates endotracheal tube is2 cm above the david per my in terpretation. Patient demonstrating restlessness and agitation after reintubation. Given 50 mg bolus, propofol. Immediate a.m. labs reviewed, modest improvement in patient's renal function. Continues to make adequate urine. We will be signing the patient out to the oncoming physician, please see their documentation for further detail. 12/19/22 05:57 12/19/22 06:05 12/19/22 06:55
[2022-12-18 23:47] LABS: ABG BASE EXCESS -13.2 mmol/L (-2.0-3.0); ABG HCO3 20.3 mmol/L (22.0-26.0); ABG PO2 56 mmHg (80-100); ABG TCO2 23.1 MMOL/L (21.0-29.0)
[2022-12-18 23:48] LABS: ALLEN TEST POSITIVE
[2022-12-18 23:49] LABS: ABG MODE OF VENTILATION ASSIST/CONTROL; ABG RESPIRATORY RATE 18 b/min
[2022-12-18 23:51] LABS: ABG OXYGEN SATURATION 82 % (94-98); ABG PCO2 89 mmHg (34-45); ABG PH 6.98 (7.35-7.45)
[2022-12-19] MEDS ORDERED: iohexoL-300 100 ML VIAL IVP ONE (00:08)
[2022-12-19] MEDS ORDERED: DEXTROSE 50% ABBOJECT 25 GM/50 ML SYRINGE IVP STA ×5 (01:05→05:32)
[2022-12-19 01:07] LABS: ABG HCO3 19.2 mmol/L (22.0-26.0); ABG PO2 56 mmHg (80-100)
[2022-12-19 01:08] LABS: ABG BASE EXCESS -11.7 mmol/L (-2.0-3.0); ABG MODE OF VENTILATION ASSIST/CONTROL; ABG RESPIRATORY RATE 26 b/min; ABG TCO2 21.2 MMOL/L (21.0-29.0); ALLEN TEST POSITIVE
[2022-12-19] MEDS ORDERED: DEXTROSE 50% ABBOJECT 25 GM/50 ML SYRINGE ONE ×2 (01:09→01:23)
[2022-12-19 01:11] LABS: ABG OXYGEN SATURATION 87 % (94-98); ABG PCO2 65 mmHg (34-45); ABG PH 7.09 (7.35-7.45)
[2022-12-19 02:05] LABS: VBG BASE EXCESS -11.4 mmol/L (-2 - +2); VBG HCO3 19.9 mmol/L (23-28); VBG OXYGEN SATURATION 60.3 % (60-80); VBG PCO2 68.9 mmHg (41-51)
[2022-12-19 02:10] LABS: VBG PH 7.078 (7.31-7.41)
[2022-12-19 02:25] LABS: HCT - HEMATOCRIT 44.1 % (42.0-52.0); HGB - HEMOGLOBIN 14.1 g/dL (14.0-18.0); LYMPHOCYTES % (AUTO) 15.4 %; MEAN CORPUSCULAR HEMOGLOBIN 29.7 pg (27.0-31.0); MEAN CORPUSCULAR VOLUME 92.8 fL (80.0-94.0); MEAN PLATELET VOLUME 9.8 fL (7.4-11.4); MONOCYTES % (AUTO) 10.3 %; NEUTROPHILS % (AUTO) 74.3 %; PLT - PLATELET COUNT 227 10^3/uL (130-450); RED BLOOD COUNT 4.75 10^6/uL (4.70-6.10); RED CELL DISTRIBUTION WIDTH 13.1 % (12.0-15.0)
[2022-12-19 02:38] LABS: WHITE BLOOD COUNT 1.6 x10^3/uL (4.8-10.8)
[2022-12-19 02:39] LABS: ABNORMAL LYMPHS % (MANUAL) 0 %
[2022-12-19 02:46] LABS: BAND NEUTROPHILS % (MANUAL) 14 %; DIFFERENTIAL COMMENT MANUAL DIFFERENTIAL; LYMPHOCYTES # (MANUAL) 0.4 10^3/uL (1.5-3.5); LYMPHOCYTES % (MANUAL) 25 %; METAMYELOCYTES % (MANUAL) 1 %; NEUTROPHILS # (MANUAL) 1.2 10^3/uL (1.5-6.6); PLATELET ESTIMATE, MANUAL NORMAL (130-450,000) (NORMAL); RBC MORPHOLOGY (MULTIPLE) NORMAL APPEARANCE (NORMAL)
[2022-12-19 02:48] LABS: ALBUMIN 2.5 g/dL (3.2-5.5); ALBUMIN/GLOBULIN RATIO 1.5 (1.0-2.2); BILIRUBIN,TOTAL 1.7 mg/dL (0.2-1.0); CREATININE 1.9 mg/dL (0.6-1.2); POTASSIUM 4.9 mmol/L (3.5-5.0); TOTAL PROTEIN 4.2 g/dL (6.7-8.2)
[2022-12-19 02:50] LABS: CALCIUM 6.5 mg/dL (8.5-10.3)
[2022-12-19] MEDS ORDERED: SODIUM CHLORIDE 0.9% 1,000 ML IV STA (02:52)
[2022-12-19] MEDS ORDERED: DEXTROSE 5%-0.9% NACL 1,000 ML IV STA ×3 (03:05→09:44)
[2022-12-19] MEDS ORDERED: ACETAMINOPHEN 1,000 MG/100 ML 1,000 MG/100 ML BAG IV ONE (03:46)
[2022-12-19 04:29] LABS: VBG HCO3 19.7 mmol/L (23-28); VBG PCO2 60.3 mmHg (41-51); VBG PO2 35.2 mmHg (25-47); VBG TOTAL CO2 21.5 mmol/L (24-29)
[2022-12-19 04:30] LABS: VBG BASE EXCESS -10.1 mmol/L (-2 - +2); VBG OXYGEN SATURATION 67.9 % (60-80); VBG PH 7.131 (7.31-7.41)
[2022-12-19] MEDS ORDERED: ROCURONIUM 50 MG/5 ML VIAL IVP ONE (05:43)
[2022-12-19] MEDS ORDERED: ROCURONIUM 50 MG/5 ML VIAL ONE (05:45)
[2022-12-19 06:03] LABS: HCT - HEMATOCRIT 39.5 % (42.0-52.0); HGB - HEMOGLOBIN 12.5 g/dL (14.0-18.0); LYMPHOCYTES % (AUTO) 14.2 %; MEAN CORPUSCULAR HEMOGLOBIN 29.3 pg (27.0-31.0); MEAN CORPUSCULAR HGB CONC 31.6 g/dL (32.0-36.0); MEAN CORPUSCULAR VOLUME 92.5 fL (80.0-94.0); MEAN PLATELET VOLUME 9.8 fL (7.4-11.4); MONOCYTES % (AUTO) 4.2 %; NEUTROPHILS % (AUTO) 81.6 %; PLT - PLATELET COUNT 192 10^3/uL (130-450); RED BLOOD COUNT 4.27 10^6/uL (4.70-6.10); RED CELL DISTRIBUTION WIDTH 13.1 % (12.0-15.0)
[2022-12-19 06:09] LABS: WHITE BLOOD COUNT 1.2 x10^3/uL (4.8-10.8)
[2022-12-19 06:10] LABS: ABNORMAL LYMPHS % (MANUAL) 0 %
[2022-12-19 06:20] LABS: CREATINE KINASE MB 281.5 ng/mL (0.6-6.3)
[2022-12-19 06:25] LABS: CREATININE 1.7 mg/dL (0.6-1.2); POTASSIUM 3.7 mmol/L (3.5-5.0)
[2022-12-19 06:27] LABS: CALCIUM 6.3 mg/dL (8.5-10.3); TROPONIN I HIGH SENSITIVITY 774.4 ng/L (2.3-19.7)
[2022-12-19 06:39] LABS: BAND NEUTROPHILS % (MANUAL) 21 %; DIFFERENTIAL COMMENT MANUAL DIFFERENTIAL; LYMPHOCYTES # (MANUAL) 0.2 10^3/uL (1.5-3.5); LYMPHOCYTES % (MANUAL) 18 %; METAMYELOCYTES % (MANUAL) 2 %; NEUTROPHILS # (MANUAL) 0.9 10^3/uL (1.5-6.6); PLATELET ESTIMATE, MANUAL NORMAL (130-450,000) (NORMAL); RBC MORPHOLOGY (MULTIPLE) NORMAL APPEARANCE (NORMAL)
[2022-12-19] MEDS ORDERED: PROPOFOL 200 MG/20 ML VIAL IVP STA (06:48)
[2022-12-19] MEDS ORDERED: DEXTROSE 10% 250 ML IV STA ×2 (08:18→10:54)
--- NOTE | 2022-12-19 08:32 | XRAY Report ---
PROCEDURE: Chest for Line Placement INDICATIONS: ET Tube placement TECHNIQUE: One view of the chest was acquired. COMPARISON: None. FINDINGS: Surgical changes and devices: Endotracheal tube is present approximately 4.3 cm superior to the bennett na. Nasogastric tube is present with distal tip projecting below the left hemidiaphragm. Lungs and pleura: Prominent confluent bilateral pulmonary opacities are present. Mediastinum: Mediastinal contours appear normal. Heart size is normal. Bones and chest wall: No suspicious bony lesions. Overlying soft tissues appear unremarkable. IMPRESSION: Support lines as above. Prominent confluent pulmonary opacities which may represent pneumonia. Superimposed areas of edema an d/or atelectasis cannot be excluded. Reviewed by: Sofia Graff MD on 12/19/2022 8:30 AM PDT Approved by: Sofia Graff MD on 12/19/2022 8:30 AM PDT Station ID: [id number]
[2022-12-19] MEDS ORDERED: PROPOFOL 1000 MG/100 ML 1,000 MG/100 ML BOTTLE IV SCH (09:00)
[2022-12-19] MEDS ORDERED: SODIUM CHLORIDE 0.9% 500 ML IV STA (09:44)
--- NOTE | 2022-12-19 09:50 | ED Physician Documentation ---
ED Addendum - Addendum Addendum: 12/19/22 09:45 The patient was assessed on change of shift. His ventilator settings seem appropriate and he is oxygenating adequately and his end-tidal CO2 plethoric or if he appears good. His core temperature on the Valdes is 37.3 so reasonable. We can better cover him as he has just slight blankets on. I did raise the head of the bed up to 30 degrees. Review of his lab trend and most recent labs from this morning showed a improvement in his potassium level and kidney function. His electrolytes in particular potassium are in the normal range. His blood gas still showed some acidosis at 7.11. He did have a reintubation since that time so we will get another blood gas. I ordered repeat labs for 11 AM which will be a 5-1/2-hour interval. His blood sugars getting checked every 30 to 60 minutes as it had been low. We increased his D5 normal saline from 100 to 250 mL/h. With a blood sugar reading of 49 we also gave a D10 bolus. His blood sugar is now 112. His blood pressure was still slightly low though his MAP was above 70. We will look at the potential effects. He is on propofol as well as dexmedetomidine 8 and fentanyl. The propofol may be affecting it. We can try to decrease the propofol and increase the dexmedetomidine 8 and increase the fentanyl some. This will try to reduce it to 2 agents for sedation. We are still awaiting outside facilities to be able to accept the patient for for our facility to have an ICU bed open which ever comes first I presume. Although he may be a little too complicated for our ICU and hospitalist service. Still not clear the cause for his altered mental status though consideration for fentanyl or some other contaminant given the initial improvement with Narcan per EMS report. However he did not respond well to a repeat Narcan. He is negative for opiates though a fentanyl or hydromorphone etc. may not show up on urine tox screens. He was positive for methamphetamine and could certainly account for some of the rhabdo and some metabolic derangements. However he does seem more ill than would be expected from that. Still to account is the lowered white count and so he is on antibiotics for potential sepsis. We will reevaluate him frequently and titrate his various medicines for level of sedation. 12/19/22 09:50 Critical care time with review of labs and management of IV medications as well as evaluating vital signs critically and ventilator settings. Total time this morning 50 minutes.
[2022-12-19 10:21] LABS: ABG BASE EXCESS -9.8 mmol/L (-2.0-3.0); ABG HCO3 17.9 mmol/L (22.0-26.0); ABG OXYGEN SATURATION 98 % (94-98); ABG PCO2 46 mmHg (34-45); ABG PH 7.21 (7.35-7.45); ABG PO2 109 mmHg (80-100); ABG TCO2 19.3 MMOL/L (21.0-29.0)
[2022-12-19 10:22] LABS: ABG MODE OF VENTILATION ASSIST/CONTROL; ABG RESPIRATORY RATE 26 b/min; ALLEN TEST POSITIVE
[2022-12-19] MEDS ORDERED: LACTATED RINGERS 1,000 ML IV STA (10:57)
[2022-12-19] MEDS ORDERED: DEXTROSE 10% 1,000 ML IV SCH (11:00)
[2022-12-19] MEDS ORDERED: DEXMEDETOMIDINE 400 MCG/100 ML 100 ML IV PRN ×2 (11:03→16:05)
[2022-12-19 11:05] LABS: HCT - HEMATOCRIT 38.2 % (42.0-52.0); HGB - HEMOGLOBIN 12.2 g/dL (14.0-18.0); LYMPHOCYTES % (AUTO) 19.6 %; MEAN CORPUSCULAR HEMOGLOBIN 29.1 pg (27.0-31.0); MEAN CORPUSCULAR HGB CONC 31.9 g/dL (32.0-36.0); MEAN CORPUSCULAR VOLUME 91.2 fL (80.0-94.0); MEAN PLATELET VOLUME 10.2 fL (7.4-11.4); MONOCYTES % (AUTO) 10.7 %; NEUTROPHILS % (AUTO) 69.7 %; PLT - PLATELET COUNT 155 10^3/uL (130-450); RED BLOOD COUNT 4.19 10^6/uL (4.70-6.10); RED CELL DISTRIBUTION WIDTH 13.2 % (12.0-15.0)
[2022-12-19 11:09] LABS: WHITE BLOOD COUNT 1.1 x10^3/uL (4.8-10.8)
[2022-12-19 11:11] LABS: ABNORMAL LYMPHS % (MANUAL) 0 %
[2022-12-19] MEDS ORDERED: DEXMEDETOMIDINE 400 MCG in SODIUM CHLORIDE 0.9% 100ML 96 ML IV PRN (11:15)
[2022-12-19 11:36] LABS: BAND NEUTROPHILS % (MANUAL) 27 %; LYMPHOCYTES # (MANUAL) 0.3 10^3/uL (1.5-3.5); LYMPHOCYTES % (MANUAL) 28 %; MONOCYTES # (MANUAL) 0.1 10^3/uL (0.0-1.0); PLATELET ESTIMATE, MANUAL NORMAL (130-450,000) (NORMAL); PLATELET MORPHOLOGY NORMAL APPEARANCE (NORMAL); RBC MORPHOLOGY (MULTIPLE) NORMAL APPEARANCE (NORMAL); WBC MORPHOLOGY (MULTIPLE) NORMAL APPEARANCE (NORMAL)
[2022-12-19 11:37] LABS: DIFFERENTIAL COMMENT MANUAL DIFFERENTIAL; NEUTROPHILS # (MANUAL) 0.7 10^3/uL (1.5-6.6)
[2022-12-19 11:56] LABS: CREATININE 1.4 mg/dL (0.6-1.2); MAGNESIUM 1.9 mg/dL (1.7-2.8); POTASSIUM 4.5 mmol/L (3.5-5.0)
[2022-12-19 12:00] LABS: CALCIUM 6.3 mg/dL (8.5-10.3)
[2022-12-19] MEDS ORDERED: NOREPINEPHRINE/0.9 % NS 8 MG/250 ML BAG IV SCH (16:00)
--- NOTE | 2022-12-19 16:31 | ED Physician Documentation ---
ED Addendum - Addendum Addendum: 12/19/22 16:24 The patient's pressure started to trend downward. We did get some fluid boluses of normal saline. His blood sugar was also repetitively decreasing despite the D5 normal saline. He was given a D10 bolus infusion for hypoglycemia with improvement in the sugar. We then changed him to a D10 drip combined in parallel with Ringer's lactate a drip. This was maintaining his blood sugar and adequate range. His blood pressure started trending down through the morning and stayed approximately 80-90 systolic with a MAP about 65. It did not seem to respond to fluid boluses. Consideration was potential medication as he was on propofol as well as fentanyl and Precedex. We increased up the Precedex and titrated down and off the propofol to eliminate that as a blood pressure effect. This did not seem to have affected much. His repeat blood gas was actually improving some with a pH 7.21. His PCO2 was 46. His PO2 was actually high at 109 and we were to titrate down his FiO2 from 100% down to 50 or 60% aiming for a oximetry of 95%. We maintained his head of the bed up at an angle to reduce aspiration. His lung sounds remained bit congested. His chest x-ray this morning after intubation had shown diffuse interstitial changes consistent with large ARDS but also consider aspiration. He is maintained on the ventilator with sedation. He has been receiving IV antibiotics as well. We were initially having difficulty finding bed placement in other facilities. I consulted our hospitalist here for advice on management while here and also consideration of admission to our ICU which now has a bed available. However the patient does seem complex for this. Subsequently we did have facility call us from the [facility], [facility] in [place] and I talked to the lubrication equipment servicer there. I reviewed all the findings and course of treatment as well as exam and vitals. He asked that we start a low-dose norepinephrine drip and increase his respiratory rate by 2 and the pressure support to 10. Otherwise to remain the same at this point regarding other medications. They were excepting of transfer of the patient. Obviously due to the complexity of his situation with multiple drips and being on a ventilator etc., he needs to go by medical helicopter. They were available and ready to take him. Disposition: The patient was transferred to acute care hospital in stable but critical condition Diagnoses: 1. Altered mental status with likely substance use overdose 2. ARDS 3. Likely sepsis 4. Leukocytosis 5. Hypoglycemia, persistent 6. Developing hypotension subsequent to #3 7. History of illicit substance abuse Critical care critical care time spent on this further addendum and repeated evaluations and transfer was 45 minutes
[2022-12-19 16:38] VITALS: BP 82/49
== END 2022-12-19 16:40 | disposition short-term general hospital (02) ==
LOC: EDUNIT# → ED 17:22
DX: I21.4 Non-ST elevation (NSTEMI) myocardial infarction (principal); I46.9 Cardiac arrest, cause unspecified; K92.2 Gastrointestinal hemorrhage, unspecified; F17.200 Nicotine dependence, unspecified, uncomplicated; Z20.822 Contact with and (suspected) exposure to COVID-19; I10 Essential (primary) hypertension
CPT/HCPCS: 31500; 36415; 36556; 36600; 70450; 71045; 71260; 72125; 74177; 80048; 80053; 80306; 80307; 80320; 80329; 81001; 82140; 82550; 82553; 82803; 83605; 83690; 83735; 83880; 84132; 84484; 85025; 85610; 86850; 86900; 86901; 87040; 87077; 87150; 87635; 92950; 93005; 94002; 94003; 96365; 96366; 96368; 96375; 96376; 99291; 99292; J0131; J0330; J1815; J3010; J3370; J3490; J7120; Q9967; 81003; 87086; 94770